=== PATIENT | male | born 1950 | race Caucasian/White ===

== ENCOUNTER 2019-07-21 13:47 | Outpatient (CLI) | payer MEDICARE ==
[~2019-07-21] VITALS: Ht 177 cm; Wt 124.0 kg
[~2019-07-21 13:47] MED LIST: CLAR-19 PO; CODE118S2 PO; FLUT1DIS26 INH; GEMF600T3 PO; GUAI600T PO; HCT25T PO; LISI20TA2 PO; MNTL10T PO; OMEP20CA6 PO; PRD20T PO; SIMV80TA3 PO; VERA120T6 PO
[2019-07-21] MEDS ORDERED: MONT10TA26 PO (13:55)
[2019-07-21] MEDS ORDERED: LISI-552 PO (13:55)
[2019-07-21] MEDS ORDERED: SIMV40TA25 PO (13:55)
[2019-07-21] MEDS ORDERED: OMEP20CA18 PO (13:55)
[2019-07-21] MEDS ORDERED: RT-ALBUINH IH (13:55)
[2019-07-21] MEDS ORDERED: HYDR25TA4 PO (13:55)
[2019-07-21] MEDS ORDERED: FLUT1DIS26 IH (13:55)
[2019-07-21] MEDS ORDERED: GEMF600T8 PO (13:55)
[2019-07-21] MEDS ORDERED: METF-397 PO (13:55)
[2019-07-21] MEDS ORDERED: ALBU0.63 IH (13:55)
[2019-07-21] MEDS ORDERED: VERA120T15 PO (13:55)
[2019-07-21] MEDS ORDERED: NAPR-1070 PO (13:55)
== END 2019-07-21 13:58 | disposition home or self-care (01) ==
LOC: PREOP 13:47
PROVIDERS: ATTEND Surgery
DX: Z01.818 Encounter for other preprocedural examination (principal)

== ENCOUNTER 2019-07-27 08:34 | Day surgery (SDC) | payer MEDICARE ==
--- NOTE | 2019-07-17 08:38 | HISTORY AND PHYSICAL ---
DATE OF SERVICE: PROCEDURE DATE: 07/27/2019. ATTENDING PHYSICIAN: Vita Bernabe MD HISTORY OF PRESENT ILLNESS: The patient is a 68-year-old male who was referred over to us in need of a screening colonoscopy. The patient reports his last colonoscopy was 12 years ago, which he reports was normal. He reports that since that time, he has not had any blood in the stool and denies any family history of any colon cancer. He does report occasional episodes of constipation, but no diarrhea. He denies any abdominal pain. He does report episodes of reflux and did report an EGD 20 years ago. However, reports that this has controlled with medication. PAST MEDICAL HISTORY: Asthma, COPD, hypertension, non-insulin dependent diabetes, gastroesophageal reflux disease, hypercholesterolemia, obstructive sleep apnea. PAST SURGICAL HISTORY: Left knee arthroscopy in 2008, tonsil and adenoidectomy as a child, appendectomy as a child. ALLERGIES: No known drug allergies. MEDICATIONS: Hydrochlorothiazide 25 mg, metformin 500 mg b.i.d., albuterol sulfate p.r.n., atorvastatin 40 mg daily, verapamil 120 mg b.i.d., gemfibrozil 600 mg b.i.d., naproxen 500 mg b.i.d. p.r.n., Singulair 10 mg daily, lisinopril 20 mg b.i.d., ProAir inhaler p.r.n., trazodone 50 mg at bedtime, omeprazole 20 mg daily. SOCIAL HISTORY: Previous for smoke 1 pack per day for 6 years, quit in 1986, previous for a pipe and cigar smoke, rare for alcohol. FAMILY HISTORY: Mother, stroke at 86 of age. Sister, type 2 diabetes. Maternal grandmother, stroke at 82 years of age. VITAL SIGNS: Blood pressure is 144/77. Current weight is 274.6 pounds at 5 feet 10 inches. REVIEW OF SYSTEMS: Well-nourished male in no acute distress. He is not experiencing any shortness of breath or difficulty breathing. No chest pain, palpitations or diaphoresis. No nausea, vomiting or abdominal pain. No diarrhea. Does report occasional episodes of constipation. No red blood per rectum. No dark tarry stools. No fever or chills. No recent inadvertent weight loss. All other review of systems negative. PHYSICAL EXAMINATION: CHEST: Clear. Good breath sounds bilaterally. HEART: Regular, no murmurs. EXTREMITIES: No lower extremity edema. Negative Homans sign. HEENT: No scleral icterus. NECK: No cervical lymphadenopathy. ABDOMEN: Soft, nontender, nondistended. SKIN: Warm, dry and pink. NEUROLOGIC: Awake, alert, oriented x3. ASSESSMENT AND PLAN: A 68-year-old male who is in need of a screening colonoscopy. The risks and benefits of the procedure as well as the procedure and home care instructions were explained to the patient. The patient verbalized understanding of instructions and agrees to proceed as planned. At this time, we will proceed with scheduling the patient for a screening colonoscopy. Job ID: [id number] DocumentID: [id number] Dictated Date: 07/06/2019 11:23:21 Boiler Coverer Helper Date: 07/06/2019 11:55:00 Dictated By: RAJEEV NG APRN
[~2019-07-27] VITALS: Ht 177.8 cm; Wt 124.0 kg
[~2019-07-27 08:34] MED LIST changes: +ALBU0.63 IH; +FLUT1DIS26 IH; +GEMF600T8 PO; +HYDR25TA4 PO; +LISI-552 PO; +METF-397 PO; +MONT10TA26 PO; +NAPR-1070 PO; +OMEP20CA18 PO; +RT-ALBUINH IH; +SIMV40TA25 PO; +VERA120T15 PO
[2019-07-27] MEDS ORDERED: LACTATED RINGERS 1,000 ML IV ONE (08:39)
[2019-07-27] MEDS ORDERED: LACTATED RINGERS 1,000 ML IV STA (08:42)
[2019-07-27] MEDS ORDERED: LIDOCAINE JELLY 2% 6 ML SYRINGE MM PRN (08:45)
[2019-07-27 08:51] VITALS: BP 131/73
[2019-07-27] MEDS ORDERED: MIDAZOLAM 2 MG/2 ML (VERSED) VIAL ONE (10:43)
[2019-07-27] MEDS ORDERED: proPOfol 200 MG/20 ML (DIPRIVAN) VIAL IV ONE (10:43)
[2019-07-27] MEDS ORDERED: LIDOCAINE JELLY 2% 6 ML SYRINGE ONE (10:47)
--- NOTE | 2019-07-27 10:48 | Conscious Sedation/ASA ---
Conscious Sedation Pre-Proced Time 10:30 ASA Score 2 For ASA 3 and 4: Consider anesthesia and medical clearance. Also, for patients with a history of failed moderate sedation consider anesthesia. Airway Lungs Heart ASA score ASA 1: a normal healthy patient ASA 2: a patient with a mild systemic disease (mid diabetes, controlled hypertension, obesity ASA 3: a patient with a severe systemic disease that limits activity (angina, COPD, prior Myocardial infarction) ASA 4: a patient with an incapacitating disease that is a constant threat to life (CHF, renal failure) ASA 5: a moribund patient not expected to survive 24 hrs. (ruptured aneurysm) ASA 6: a declared brain- patient whose organs are being harvested. For emergent operations, add the letter E after the classification Mallampati Classification Grade 2 Sedation Plan Analgesia, Amnesia, Plan communicated to team members, Discussed options with patient/fam, Discussed risks with patient/fam The patient is an appropriate candidate to undergo the planned procedure, sedation, and anesthesia. The patient immediately re-assessed prior to indication. AMRIK LAKE MD Jul 27, 2019 10:48
--- NOTE | 2019-07-27 10:49 | Progress Note-Pre Operative ---
Pre-Operative Progress Note H&P Reviewed The H&P was reviewed, patient examined and no changes noted. Date Seen by Provider: Jul 27, 2019 Time Seen by Provider: 10:30 Date H&P Reviewed: Jul 27, 2019 Time H&P Reviewed: 10:30 Pre-Operative Diagnosis: screening colonoscopy AMRIK LAKE MD Jul 27, 2019 10:49
--- NOTE | 2019-07-27 10:52 | Discharge Inst-Surgical ---
D/C Lap Instructions-JAYA Follow Up Activity as tolerated High Fiber Diet 25g or more per day Avoid Alcohol, Caffeine, Spicy [place] and Acid foods. Drink 64 fluid oz or more of fluids per day. Symptoms to Report: Fever over 101 degree F, Nausea/Vomiting If any problems/questions: Contact your physician or go to Emergency Room AMRIK LAKE MD Jul 27, 2019 10:52
[2019-07-27] MEDS ORDERED: ONDANSETRON 4 MG/2 ML (SDV) Z0FRAN IVP PRN (11:00)
[2019-07-27] MEDS ORDERED: morphine INJ 10 MG/ML 1ML (SYR OR VIAL) IVP PRN ×2 (11:00)
[2019-07-27] MEDS ORDERED: ACETAMINOPHEN 325 MG TABLET PO PRN (11:00)
[2019-07-27] MEDS ORDERED: HYDROcodone/APAP 5 MG/325 MG (LORTAB) TAB PO PRN (11:00)
[2019-07-27 11:10] VITALS: BP 120/70
[2019-07-27 11:15] VITALS: BP 113/56
[2019-07-27 11:25] VITALS: BP 113/56
--- NOTE | 2019-07-27 11:32 | Progress Note-Post Operative ---
Post-Operative Progess Note Surgeon (s)/Lime Kiln Worker (s) Surgeon AMRIK LAKE MD [place] Worker: none Pre-Operative Diagnosis screening colonoscopy Post-Operative Diagnosis mild chronic stage 2 ext and int hemorrhoids, moderate sigmoid diverticulosis. Procedure & Operative Findings Date of Procedure 07/27/19 Procedure Performed/Findings colonoscopy Anesthesia Type mac Estimated Blood Loss Estimated blood loss (mL): minimal Specimens/Packing Specimens Removed none AMRIK LAKE MD Jul 27, 2019 11:31
[2019-07-27 11:51] VITALS: BP 115/62
--- NOTE | 2019-07-27 12:05 | Anesthesia-General Post-Op ---
MAC Patient Condition Mental Status/LOC: Same as Preop Cardiovascular: Satisfactory Nausea/Vomiting: Absent Respiratory: Satisfactory Pain: Controlled Complications: Absent Post Op Complications Complications None Follow Up Care/Instructions Patient Instructions None needed. Anesthesiology Discharge Order Discharge Order Patient was seen after the procedure and he was doing well, no complaints, stable vital signs, no apparent adverse anesthesia problems. MIKE COBB DO Jul 27, 2019 12:05
--- NOTE | 2019-07-27 15:34 | OPERATIVE REPORT ---
DATE OF SERVICE: 07/27/2019 ATTENDING PRIMARY CARE PHYSICIAN: Vita Bernabe MD PREOPERATIVE DIAGNOSIS: Screening colonoscopy. POSTOPERATIVE DIAGNOSES: Chronic stage II external and internal hemorrhoids, [id number] sigmoid diverticulosis, no polyps identified. PROCEDURE: Colonoscopy. SURGEON: Amrik Lake MD ANESTHESIA: Monitored anesthesia care. ESTIMATED BLOOD LOSS: Minimal. FINDINGS: Same as postoperative diagnoses. DISPOSITION: The patient tolerated the procedure well. INDICATIONS: The patient is a 68-year-old male in need of a screening colonoscopy. His last colonoscopy was 12 years ago and believes this to be normal. He is otherwise doing well, does not report any major issues with diarrhea nor constipation as well as no red blood per rectum nor any dark tarry stools. He also does not report any family history of colon cancer. DESCRIPTION OF PROCEDURE: The patient was brought to the endoscopy suite, laid in left lateral decubitus position. After adequate IV pain and sedative medications and monitored anesthesia care, a digital rectal examination was performed. Mild chronic stage II external and internal hemorrhoids were identified, which were not actively edematous nor inflamed and no bleeding. Normal sphincter tone was felt and there were no palpable masses. Prostate gland was palpable and appeared normal. The endoscope was then intubated to the anus and rectum was gently insufflated. The endoscope was then advanced through the valves of [place] of the rectum with no polyps or any neoplasms identified. We then proceeded through the sigmoid colon where a moderate to severe sigmoid diverticulosis identified. There were no mucosal inflammatory changes to indicate any active diverticulitis. The endoscope was then advanced to the remainder of the descending, transverse and ascending colon to the cecum. These segments were normal. There were no polyps or any neoplasms identified throughout the colon or rectum. Endoscope was then slowly withdrawn while taking a second look and suctioning of residual air with no additional findings. The patient tolerated the procedure well. We will recommend a high fiber diet with 30 grams of fiber daily as well as significant amounts of water daily to promote soft stools on a daily basis. No polyps were identified. He does not have any family history of colon cancer. He may wait 10 years for his next colonoscopy; however, sooner if he becomes symptomatic. Job ID: [id number] DocumentID: [id number] Dictated Date: 07/27/2019 11:18:29 Hot Press Operator Date: 07/27/2019 15:33:25 Dictated By: AMRIK LAKE MD
== END 2019-07-27 12:00 | disposition home or self-care (01) ==
LOC: ENDO 08:34
PROVIDERS: ATTEND Surgery
DX: Z12.11 Encounter for screening for malignant neoplasm of colon (principal); K64.1 Second degree hemorrhoids; K64.4 Residual hemorrhoidal skin tags; K57.30 Diverticulosis of large intestine without perforation or abscess without bleeding; I10 Essential (primary) hypertension; G47.33 Obstructive sleep apnea (adult) (pediatric); E11.9 Type 2 diabetes mellitus without complications; E78.00 Pure hypercholesterolemia, unspecified; E78.5 Hyperlipidemia, unspecified; J44.9 Chronic obstructive pulmonary disease, unspecified; K21.9 Gastro-esophageal reflux disease without esophagitis; Z90.89 Acquired absence of other organs; Z87.891 Personal history of nicotine dependence; Z79.84 Long term (current) use of oral hypoglycemic drugs; Z79.899 Other long term (current) drug therapy; Z82.3 Family history of stroke
CPT/HCPCS: 82962

== ENCOUNTER → 2020-06-05 | Outpatient (CLI) | payer MEDICARE ==
[~2020-06-05] MED LIST changes: -MONT10TA26 PO; +MONT10TA97 PO
--- NOTE | 2020-06-05 15:54 | Diagnostic Imaging Report ---
INDICATION: COUGH, CONGESTION, COVID 19 NEGATIVE, COPD COMPARISON: 10/06/2017. FINDINGS: Frontal and lateral views of the chest demonstrate normal heart size and pulmonary vascularity. The lungs are clear. There are no signs of infiltrate, pleural effusions or pneumothoraces. The visualized osseous structures show no acute abnormalities. IMPRESSION: 1. No acute process. No signs of infiltrates, effusions or pneumothoraces. Dictated by: Dictated on workstation # [id number]
== END ==
LOC: RAD 14:53
PROVIDERS: ATTEND Family Medicine
DX: J44.9 Chronic obstructive pulmonary disease, unspecified (principal); Z20.822 Contact with and (suspected) exposure to COVID-19
CPT/HCPCS: 71046

== ENCOUNTER → 2022-03-20 | Outpatient (CLI) | payer MEDICARE ==
[~2022-03-20] MED LIST changes: +ALBU8.5H6 IH; -GEMF600T8 PO; +GEMF600T88 PO; -LISI-552 PO; +LISI20TA26 PO; +MONT-40 PO; -MONT10TA97 PO; -RT-ALBUINH IH
--- NOTE | 2022-03-20 11:21 | Diagnostic Imaging Report ---
PROCEDURE: US left lower extremity venous. TECHNIQUE: Multiple real-time grayscale images were obtained over the left lower extremity in various projections. Additional duplex Doppler and color Doppler images were also obtained. INDICATION: Left lower extremity swelling. There is no evidence of left lower extremity DVT. Left lower extremity deep venous system shows normal compressibility with normal response to augmentation and Valsalva. No fluid collection or mass is detected. IMPRESSION: No evidence of left lower extremity DVT. Dictated by: Dictated on workstation # [id number]
== END ==
LOC: RAD 10:15
PROVIDERS: ATTEND Family Medicine
DX: R22.42 Localized swelling, mass and lump, left lower limb (principal)

== ENCOUNTER → 2022-09-29 | Outpatient (CLI) | payer MEDICARE ==
--- NOTE | 2022-09-29 15:42 | Diagnostic Imaging Report ---
INDICATION: Left lower extremity edema. COMPARISON: None. TECHNIQUE: Duplex, gutierrez-scale and color-flow imaging of the left lower extremity venous system was performed. FINDINGS: The common femoral vein, superficial femoral vein, profunda femoris, and popliteal veins are normal. These vessels show normal compressibility, color flow, and doppler augmentation. The deep calf veins, although not very well seen, demonstrate no distinct intraluminal thrombus. IMPRESSION: Negative venous Doppler of the left lower extremity. Dictated by: Dictated on workstation # [id number]
== END ==
LOC: RAD 13:41
PROVIDERS: ATTEND Family Medicine
DX: R60.0 Localized edema (principal)